=== PATIENT | female | born 1960 ===

== ENCOUNTER 2021-02-16 12:21 | Outpatient (CLI) | payer BC | END 2021-02-16 12:22 | disposition home or self-care (01) | LOC: CSHCT 12:21 | PROVIDERS: ATTEND Physician Assistant Medical | DX: K50.90 Crohn's disease, unspecified, without complications (principal); K21.9 Gastro-esophageal reflux disease without esophagitis; R10.13 Epigastric pain; R10.12 Left upper quadrant pain | CPT/HCPCS: 74160; 82565 ==